=== PATIENT | male | born 1960 | race Caucasian/White ===

== ENCOUNTER 2017-07-19 16:07 | Outpatient (CLI) | payer MEDICARE, MEDICAID ==
--- NOTE | 2017-07-19 17:42 | Diagnostic Imaging Report ---
Indication: COUGH Technique: 2 views of the chest Comparison: none. Findings: Lungs and pleural spaces are clear. Heart size is normal. Bones are unremarkable. No significant interim change. Impression: No acute process
== END 2017-07-19 18:07 | disposition home or self-care (01) ==
LOC: RAD 16:07
DX: Z01.818 Encounter for other preprocedural examination (principal); R05 Cough
CPT/HCPCS: 71020